=== PATIENT | male | born 1950 | race Caucasian/White ===

== ENCOUNTER 2017-05-08 16:17 | Emergency (ER) | payer MEDICARE ==
[2016-04-16 15:53] VITALS: Ht 177.8 cm; Wt 95.3 kg
[~2017-05-08] VITALS: Ht 177.8 cm; Wt 95.3 kg
--- NOTE | 2017-05-08 16:20 | ER Report ---
History and Physical Time Seen By MD: 16:20 HPI/ROS CHIEF COMPLAINT: r flank pain HISTORY OF PRESENT ILLNESS: Pt started a few days ago with r flank pain that radiates to rlq. Pain stasrted a few days ago, comes and goes. Pt states he is urinating more but in small amounts. No change in bm. no fevers. pt c/o of constant nausea. Went to pcp and had cbc and cmp and was then sent to the emergency department for further testing. PT denies cough, or uri symptoms. Pt states he is not leaving here today unless we know what is wrong with him "i will [facility] hospital if you discharge me and I dont feel better" REVIEW OF SYSTEMS: Constitutional: No fever, no chills. Eyes: No discharge. ENT: No sore throat. Cardiovascular: No chest pain, no palpitations. Respiratory: No cough, no shortness of breath. Gastrointestinal: + abdominal pain, no vomiting. Genitourinary: No hematuria. Musculoskeletal: + back pain. Skin: No rashes. Neurological: No headache. Allergies: Coded Allergies: acetaminophen (Verified Allergy, Unknown, 04/14/16) oxycodone HCl (Verified Allergy, Unknown, 04/14/16) Home Meds Reported Medications Carvedilol (CARVEDILOL) 12.5 Mg Tablet, 25 MG PO BID, #20 TAB 12/21/14 Sertraline Hcl (ZOLOFT) 100 Mg Tablet, 1 TAB PO HS TAKE ONE TABLET BY MOUTH EVERY DAY 05/17/13 Levothyroxine Sodium (LEVOTHYROXINE SODIUM) 75 Mcg Tablet, 75 MCG PO QDAY 05/17/13 Omeprazole (OMEPRAZOLE) 20 Mg Tablet.dr, 20 MG PO QDAY TAKE ONE TABLET BY MOUTH ONCE A DAY 05/17/13 Quetiapine Fumarate (Seroquel Xr) 150 Mg Tab.sr.24h, 150 MG PO QHS, #30 1 Refill 05/07/12 Trazodone Hcl (Desyrel) 100 Mg Tablet, 100 MG PO QHS, #30 1 Refill 05/07/12 Discontinued Reported Medications Losartan/Hydrochlorothiazide (LOSARTAN-HCTZ 100-25 MG TAB) 1 Each Tablet, 1 EACH PO QDAY 12/21/14 Simvastatin (SIMVASTATIN) 20 Mg Tablet, 20 MG PO HS, TAB 2/11/14 Discontinued Scripts Cephalexin 500 Mg Tab (KEFLEX 500 MG TAB) 500 Mg Tablet, 500 MG PO TID, #21 TAB Prov:MARY ANN PALACIO V DO 12/14/16 Ondansetron (ZOFRAN ODT) 4 Mg Tab.rapdis, 4 MG PO Q4-6H Y for NAUSEA/VOMITING, # 15 TAB.RASHI Prov:MARY ANN PALACIO V DO 12/14/16 Hydrocodone Bit/Acetaminophen (HYDROCODON-ACETAMINOPHEN 5-325) 1 Each Tablet, 1 EACH PO Q4-6H Y for PAIN, #15 TAB Prov:MARY ANN PALACIO V DO 12/14/16 Pantoprazole Sodium (PANTOPRAZOLE SODIUM) 40 Mg Tablet.dr, 40 MG PO QDAY, #30 TAB 3 Refills Prov:BLESSING BRUNNER MD 04/16/16 Past Medical/Surgical History Pmhx: kidney stones, htn,hyperlipid, divertic Pshx: neg abd surgeries Reviewed Nurses Notes: Yes Old Medical Records Reviewed: Yes Hx Smoking: No Hx Substance Use Disorder: No Hx Alcohol Use: No Constitutional Vital Sign - Last 24 Hours 05/08/17 05/08/17 05/08/17 05/08/17 16:32 16:33 16:36 16:47 Temp 99.4 Pulse ??? 93 93 Resp 16 6 B/P (MAP) 186/119 (141) 186/119 Pulse Ox 94 89 O2 Delivery Room Air 05/08/17 05/08/17 05/08/17 05/08/17 17:00 17:02 17:17 17:30 Pulse 89 ??? Resp 12 B/P (MAP) 116/92 (100) 179/113 (135) Pulse Ox 94 05/08/17 05/08/17 05/08/17 05/08/17 17:32 17:47 18:00 18:02 Pulse 93 91 91 Resp 18 16 17 B/P (MAP) 170/100 (123) Pulse Ox 95 93 96 Physical Exam General Appearance: The patient is alert, has no immediate need for airway protection and no signs of toxicity. Eyes: Pupils equal and round no pallor or injection, EOMI ENT: no pharyngeal erythema or exudates, Mucous membranes are moist Respiratory: There are no retractions, lungs are clear to auscultation. Cardiovascular: Regular rate and rhythm. pulses are equal and symmetrical Gastrointestinal: Abdomen is soft with mild tenderness rlq, no masses, bowel sounds normal, no guarding, no rigidity or rebound; + R cva tenderness Neurological: Cranial nerves II-XII grossly intact, no sensory or motor loss Skin: Warm and dry, no rashes. Musculoskeletal: Neck is supple non tender, no vertebral tenderness Extremities are nontender, non swollen and have full range of motion. DIFFERENTIAL DIAGNOSIS: After history and physical exam differential diagnosis was considered for kidney stone, uti, pyelo, divertic Medical Decision Making Data Points Laboratory Hematology Test 05/08/17 16:40 Urine Color Yellow Urine Clarity Clear Urine pH 5.0 pH (4.8-9.5) Urine Specific [place] 1.026 Urine Protein 30 mg/dL (NEGATIVE) Urine Glucose (UA) Negative mg/dL (NEGATIVE) Urine Ketones Negative mg/dL (NEGATIVE) Urine Blood Negative (NEGATIVE) Urine Nitrite Negative (NEGATIVE) Urine Bilirubin Negative (NEGATIVE) Urine Urobilinogen Negative mg/dL (0.2-1.9) Urine Leukocyte Esterase Negative (NEGATIVE) Urine RBC 5 /HPF (0-2/HPF) Urine WBC 1 /HPF (0-5/HPF) Urine Squamous Epithelial Cells None /LPF (</=FEW) Urine Bacteria Negative /HPF (NONE-FEW) Urine Mucus None /HPF (NONE-FEW) Chemistry Test 05/08/17 16:40 Urine Color Yellow Urine Clarity Clear Urine pH 5.0 pH (4.8-9.5) Urine Specific [place] 1.026 Urine Protein 30 mg/dL (NEGATIVE) Urine Glucose (UA) Negative mg/dL (NEGATIVE) Urine Ketones Negative mg/dL (NEGATIVE) Urine Blood Negative (NEGATIVE) Urine Nitrite Negative (NEGATIVE) Urine Bilirubin Negative (NEGATIVE) Urine Urobilinogen Negative mg/dL (0.2-1.9) Urine Leukocyte Esterase Negative (NEGATIVE) Urine RBC 5 /HPF (0-2/HPF) Urine WBC 1 /HPF (0-5/HPF) Urine Squamous Epithelial Cells None /LPF (</=FEW) Urine Bacteria Negative /HPF (NONE-FEW) Urine Mucus None /HPF (NONE-FEW) Urinalysis Test 05/08/17 16:40 Urine Color Yellow Urine Clarity Clear Urine pH 5.0 pH (4.8-9.5) Urine Specific [place] 1.026 Urine Protein 30 mg/dL (NEGATIVE) Urine Glucose (UA) Negative mg/dL (NEGATIVE) Urine Ketones Negative mg/dL (NEGATIVE) Urine Blood Negative (NEGATIVE) Urine Nitrite Negative (NEGATIVE) Urine Bilirubin Negative (NEGATIVE) Urine Urobilinogen Negative mg/dL (0.2-1.9) Urine Leukocyte Esterase Negative (NEGATIVE) Urine RBC 5 /HPF (0-2/HPF) Urine WBC 1 /HPF (0-5/HPF) Urine Squamous Epithelial Cells None /LPF (</=FEW) Urine Bacteria Negative /HPF (NONE-FEW) Urine Mucus None /HPF (NONE-FEW) EKG/Imaging Imaging + stone ED Course/Re-evaluation ED Course [facility] cbc: wbc 14.7 hb/hct 16.4/49.1 plt 254 CMP: na: 142, K 3.9, CO2 28, Cl 103, Glu 112, Ca 10, Bun 16 Cre 1.8, alk phos 71, alt 24, ast 27, tbili 0.8, alb 4.5, tp 7.3 05/08/2017 5:48:[address] scan and I suspect his pain is due to a tiny distal ureter stone. Awaiting the official reading. 05/08/2017 6:28:13 pm 2mm stone. will d/c to follow up with . Pts bp is elevate but is suspect that is partially pain related. Pt drove to ed so unable to treat. will d/c with vicodin to take at home. Will need bp rechecked once stone passed. Decision to Disposition Date: May 08, 2017 Decision to Disposition Time: 18:28 Depart Departure Latest Vital Signs Vital Signs Date Time Temp Pulse Resp B/P (MAP) Pulse Ox O2 Delivery O2 Flow Rate FiO2 05/08/17 18:02 91 17 96 05/08/17 18:00 170/100 (123) 05/08/17 16:36 99.4 Room Air Impression: Primary Impression: Kidney stone on right side Condition: Improved Disposition: HOME OR SELF-CARE Referrals: ABBY HULL MD (PCP) LILIANA CAROLINA MD 2 Days New Scripts Ondansetron (ZOFRAN ODT) 4 Mg Tab.rapdis 4 MG PO Q6-8H Y for NAUSEA, #10 TAB.RASHI Prov: MARY ANN PALACIO V DO 05/08/17 Hydrocodone Bit/Acetaminophen (HYDROCODON-ACETAMINOPHEN 5-325) 1 Each Tablet 1 EACH PO Q4-6H Y for PAIN, #20 TAB Prov: MARY ANN PALACIO DO 05/08/17 Patient Instructions: Kidney Stones (ED) Additional Instructions: You have a 2mm kidney stone in your distal ureter which is causing you pain and nausea. You should be able to pass the stone. Strain your urine for stone. Follow up with Dr. Carolina. Vicodin one every 6 hours as needed for pain. Zofran one every 6 hours as needed for nausea. If symptoms worsen prior to seeing you urologist then please return. MARY ANN PALACIO DO May 08, 2017 16:20
[2017-05-08] MEDS ORDERED: ONDANSETRON 4 MG/2 ML VIAL IVP ONE (16:40)
[2017-05-08] MEDS ORDERED: NS(*) 0.9% 1000 ML BAG 1,000 ML IV ONE (16:40)
--- NOTE | 2017-05-08 18:05 | RADIOLOGY IMAGING REPORT ---
FACILITY: [facility] [place] PATIENT NAME: Anatoly Alexander : 1950 MR: [id number] V: [id number] EXAM DATE: ORDERING PHYSICIAN: MARY ANN PALACIO TECHNOLOGIST: [place] [facility] [place] Anatoly [place] : 1950 Visit/Account:[id number] Date of Sevice: 05/08/2017 ABDOMEN/PELVIS W/O CONTRAST HISTORY: flank pain TECHNIQUE: Axial images acquired through the abdomen/pelvis. Coronal and sagittal reformatting also performed. No IV contrast administered. One of the following dose optimization techniques was utili zed in the performance of this exam: Automated exposure control; adjustment of the mA and/or kV accor ding to the patient's size; or use of an iterative reconstruction technique. Specific details can b e referenced in the facility's radiology CT exam operational policy. COMPARISON: 12/14/2016 CT FINDINGS: Visualized lung bases: Negative. Hepatobiliary: Negative. Spleen: Negative. Adrenals: Negative. Pancreas: Negative. Kidneys ureters and bladder: There is interval development of mild right-sided hydronephrosis and ure terectasis which terminates in a 2 mm stone which is lodged in the distal right ureter approximately 1 cm from the ureterovesical junction. There is associated moderate right perinephric fat stranding. There are no additional stones in either kidney. A 3 cm right renal cyst and approximately 1 cm left renal cyst are unchanged. Genitalia: Prostate mildly enlarged. GI: Negative. Vessels/spaces/nodes: Negative. Bones/soft tissues: There is disc space narrowing at every level of the thoracic lumbar spine from T 8-9 through L5-S1 with possible exception of L3-4 compatible with degenerative disc disease. There ar e no compression fractures. Additional findings: There is a small fat filled left inguinal hernia IMPRESSION: 2 mm stone lodged in the distal right ureter causing obstruction of the right renal collecting system . There are no additional stones seen in the kidneys. Small left inguinal hernia containing intraperitoneal fat. Multilevel degenerative disc disease through the spinal axis Additional benign findings per above. Report Dictated By: Raymundo Nino MD at 05/08/2017 5:51 PM Report E-Signed By: Raymundo Nino MD at 05/08/2017 6:01 PM WSN:[id number]
[2017-05-08 18:30] VITALS: BP 157/92
[2017-05-08] MEDS ORDERED: LOR5/325 PO (18:31)
[2017-05-08] MEDS ORDERED: ONDA4TAB PO (18:34)
[2017-05-08] MEDS ORDERED: ACET/HYDROC 5/325MG TH ER ONLY 2 TAB/BOTTLE PO ONE (18:35)
== END 2017-05-08 18:55 | disposition home or self-care (01) ==
LOC: ER 16:37
DX: N20.0 Calculus of kidney (principal)
CPT/HCPCS: 74176; 81001; 96361; 96374; 99284; J2405; J7030

== ENCOUNTER → 2017-05-08 | Outpatient (REF) | payer MEDICARE ==
[2016-04-16 15:53] VITALS: BMI 28.7
[~2017-05-08] MED LIST: CARV12.578 PO; CEPH500T7 PO; DICL-195 PO; DOC100 PO; FLUO40CA70 PO; HYDR12.561 PO; LEVO75TA73 PO; LIO5 PO; LISI-347 PO; LISI20TA29 PO; LOR5/325 PO; LOSA-54 PO; MEGE40TA19 PO; MULT1TAB54 PO; OMEP-137 PO; ONDA4TAB PO; PANT40TA13 PO; PANT40TA65 PO; PRAV40TA77 PO; QUET150T3 PO; SERT20OR6 PO; SIMV-49 PO; TRAZ-133 PO
== END ==
LOC: ZZSENDIN 16:30
PROVIDERS: ATTEND Physician Assistant
DX: M54.5 Low back pain (principal)
CPT/HCPCS: 81001

== ENCOUNTER → 2017-06-30 | Outpatient (CLI) | payer MEDICARE ==
[2016-04-16 15:53] VITALS: BMI 28.7
[~2017-06-30] MED LIST changes: +SERT-173 PO; -SERT20OR6 PO
--- NOTE | 2017-06-30 10:33 | RADIOLOGY IMAGING REPORT ---
FACILITY: [facility] [place] PATIENT NAME: Anatoly Alexander : 1950 MR: [id number] V: [id number] EXAM DATE: ORDERING PHYSICIAN: LILIANA TABARES TECHNOLOGIST: Location: [facility] Patient: Anatoly Alexander : 1950 Visit/Account:[id number] Date of Sevice: 06/30/2017 Technique: KIDNEYS HISTORY: Incomplete bladder emptying Procedure: There has been satisfactory grayscale, color and Doppler ultrasonic evaluation of the kidn eys and bladder. Comparison: CT abdomen pelvis May 08, 2017 Findings: The right kidney is normal in size, contour and echogenicity; it measures 10.2 cm x 5.2 cm x 4.9 cm in its sagittal, transverse and AP dimensions. No evidence of hydronephrosis. Incidentally noted is a simple appearing cyst within the right kidney measuring 2.7 x 2.9 x 2.8 cm The left kidney is normal in size, contour and echogenicity; it measures 10.2 cm x 5.3 cm x 4.6 cm i n its sagittal, transverse and AP dimensions. Bladder: Distended. Prevoid volume 51 mL and post void volume 8 mL Flow is identified in the aorta and IVC so far as visualized. IMPRESSION: 1. Unremarkable renal ultrasound. Report Dictated By: Nirmal Pantoja DO at 06/30/2017 10:13 AM Report E-Signed By: Nirmal Pantoja DO at 06/30/2017 10:30 AM WSN:[id number]
== END ==
LOC: US 02:18
PROVIDERS: ATTEND Urology
DX: R33.8 Other retention of urine (principal); N20.1 Calculus of ureter; Z87.448 Personal history of other diseases of urinary system
CPT/HCPCS: 76705

== ENCOUNTER → 2017-08-24 | Outpatient (CLI) | payer MEDICARE ==
[2016-04-16 15:53] VITALS: BMI 28.7
== END ==
LOC: LAB 18:03
PROVIDERS: ATTEND Urology
DX: R97.20 Elevated prostate specific antigen [PSA] (principal)
CPT/HCPCS: 36415; 84153

== ENCOUNTER → 2018-05-10 | Outpatient (CLI) | payer MEDICARE ==
[2016-04-16 15:53] VITALS: BMI 28.7
--- NOTE | 2018-05-10 11:59 | RADIOLOGY IMAGING REPORT ---
FACILITY: [facility] [place] PATIENT NAME: Anatoly Alexander : 1950 MR: [id number] V: [id number] EXAM DATE: ORDERING PHYSICIAN: ABBY HULL TECHNOLOGIST: Location: [facility] - [place], [place] Patient: Anatoly Alexander : 1950 Visit/Account:[id number] Date of Sevice: 05/10/2018 Technique: L-SPINE 2 OR 3 VIEW HISTORY: Chronic lower back pain Comparison studies: None FINDINGS: There is no acute fracture. 5 nonrib-bearing lumbar type vertebral bodies are present. Mu ltilevel degenerative changes are noted including intervertebral disc space narrowing, sclerosis and endplate osteophytosis. There is 3 mm retrolisthesis of L2 on L3, 2 mm retrolisthesis of L3 on L4 an d 2 mm anterolisthesis of L4 on L5. The vertebral body heights are maintained. IMPRESSION: 1. Degenerative changes as characterized above. Report Dictated By: Nirmal Pantoja DO at 05/10/2018 11:47 AM Report E-Signed By: Nirmal Pantoja DO at 05/10/2018 11:49 AM WSN:[id number]
== END ==
LOC: RAD 09:30
PROVIDERS: ATTEND Family Medicine
DX: M47.896 Other spondylosis, lumbar region (principal)
CPT/HCPCS: 72100

== ENCOUNTER → 2018-06-03 | Outpatient (REF) | payer MEDICARE ==
[2016-04-16 15:53] VITALS: BMI 28.7
== END ==
LOC: ZZSENDIN 11:57
PROVIDERS: ATTEND Family Medicine
DX: E87.6 Hypokalemia (principal)
CPT/HCPCS: 82310; 82374; 82435; 82565; 82947; 84132; 84295; 84520

== ENCOUNTER → 2018-07-15 | Outpatient (REF) | payer MEDICARE ==
[2016-04-16 15:53] VITALS: BMI 28.7
[2018-07-15 17:19] LABS: PLATELET COUNT, AUTOMATED 299 K/uL (150-450)
== END ==
PROVIDERS: ATTEND Nurse Practitioner Family
DX: R19.7 Diarrhea, unspecified (principal); R07.9 Chest pain, unspecified
CPT/HCPCS: 82040; 82247; 82310; 82374; 82435; 82565; 82947; 84075; 84132; 84155; 84295; 84450; 84460; 84484; 84520; 85025

== ENCOUNTER 2018-11-21 19:57 | Emergency (ER) | payer MEDICARE ==
[2016-04-16 15:53] VITALS: Wt 95.3 kg
[2018-11-21] MEDS ORDERED: NS(*) 0.9% 1000 ML BAG 1,000 ML IV ONE (20:02)
--- NOTE | 2018-11-21 20:02 | ER Report ---
History and Physical Time Seen By MD: 19:55 HPI/ROS CHIEF COMPLAINT: Altered mental status HISTORY OF PRESENT ILLNESS: 68-year-old male brought in by EMS after he was pulled over by police for driving very slowly 8 miles an hour, also driving e rratically. Patient seems very foggy and slow to answer. EMS did the stroke scale and did not have any significant findings. Patient feels febrile and touch. Patient is alert and oriented 3. He is very slow to answer and process questions. He seems easily distracted. Patient is supposed to be on Seroquel at bedtime. Patient denies substance abuse or alcohol. REVIEW OF SYSTEMS: Respiratory: No cough, no dyspnea. Cardiovascular: No chest pain, no palpitations. Gastrointestinal: No vomiting, no abdominal pain. Musculoskeletal: No back pain. Allergies: Coded Allergies: acetaminophen (Verified Allergy, Unknown, 04/14/16) oxycodone HCl (Verified Allergy, Unknown, 04/14/16) Home Meds Active Scripts Ondansetron (ZOFRAN ODT) 4 Mg Tab.rapdis, 4 MG PO Q6-8H PRN for NAUSEA, #10 TAB.RASHI Prov:MARY ANN PALACIO V DO 05/08/17 Hydrocodone Bit/Acetaminophen (HYDROCODON-ACETAMINOPHEN 5-325) 1 Each Tablet, 1 EACH PO Q4-6H PRN for PAIN, #20 TAB Prov:MARY ANN PALACIO V DO 05/08/17 Reported Medications Carvedilol (CARVEDILOL) 12.5 Mg Tablet, 25 MG PO BID, #20 TAB 12/21/14 Sertraline Hcl (ZOLOFT) 100 Mg Tablet, 1 TAB PO HS TAKE ONE TABLET BY MOUTH EVERY DAY 05/17/13 Levothyroxine Sodium (LEVOTHYROXINE SODIUM) 75 Mcg Tablet, 75 MCG PO QDAY 05/17/13 Omeprazole (OMEPRAZOLE) 20 Mg Tablet.dr, 20 MG PO QDAY TAKE ONE TABLET BY MOUTH ONCE A DAY 05/17/13 Quetiapine Fumarate (Seroquel Xr) 150 Mg Tab.sr.24h, 150 MG PO QHS, #30 1 Refill 05/07/12 Trazodone Hcl (Desyrel) 100 Mg Tablet, 100 MG PO QHS, #30 1 Refill 05/07/12 Past Medical/Surgical History Pmhx: kidney stones, htn,hyperlipid, divertic, hypothyroidism, GERD Pshx: neg abd surgeries Reviewed Nurses Notes: Yes Old Medical Records Reviewed: Yes Hx Smoking: No Hx Substance Use Disorder: No Hx Alcohol Use: No Constitutional Vital Sign - Last 24 Hours 11/21/18 11/21/18 11/21/18 11/21/18 19:57 20:03 20:12 20:30 Temp 99.5 Pulse 81 76 Resp 20 26 B/P (MAP) 139/89 (106) 139/89 120/78 (92) Pulse Ox 88 93 O2 Delivery Room Air 11/21/18 11/21/18 11/21/18 11/21/18 20:42 21:12 21:17 21:30 Pulse 68 69 Resp 15 19 B/P (MAP) 132/82 (99) 155/120 (132) Pulse Ox 92 95 11/21/18 11/21/18 11/21/18 11/21/18 21:35 21:47 21:50 22:00 Pulse 70 65 B/P (MAP) 136/86 (103) Pulse Ox 90 95 O2 Flow Rate 2.0 11/21/18 22:05 Pulse 66 Pulse Ox 95 Physical Exam General Appearance: The patient is alert, has no immediate need for airway protection and no signs of toxicity. Vital signs stable, low-grade fever 99 5 Eyes: Pupils equal and round no pallor or injection. PERRLA, EOMI ENT, Mouth: Mucous membranes are moist. Respiratory: There are no retractions, lungs are clear to auscultation. Cardiovascular: Regular rate and rhythm., No murmur Gastrointestinal: Abdomen is soft and non tender, no masses, bowel sounds normal. Neurological: Alert and oriented 3 but very slow processing his thoughts and answers., Motor 5/5 all groups, sensory intact to light touch 4, cerebellum grossly intact Skin: Warm and dry, no rashes. Musculoskeletal: Neck is supple non tender. Extremities are nontender, nonswollen and have full range of motion. DIFFERENTIAL DIAGNOSIS: After history and physical exam differential diagnosis was considered for altered mental status including but not limited to hypoglycemia, infectious process, electrolyte abnormality, head injury and intoxicants. Medical Decision Making Data Points Result Diagram: 11/21/18194611/21/181946 Laboratory Hematology Test 11/21/18 19:47 White Blood Count 9.7 k/uL (4.5-11.0) Red Blood Count 5.26 M/uL (4.00-5.60) Hemoglobin 14.4 g/dL (14.0-18.0) Hematocrit 41.1 % (42.0-52.0) L Mean Corpuscular Volume 78.2 fL (80.0-96.0) L Mean Corpuscular Hemoglobin 27.4 pg (26.0-33.0) Mean Corpuscular Hemoglobin Concent 35.0 g/dL (32.0-36.0) Red Cell Distribution Width 15.0 % (11.5-14.5) H Platelet Count 290 K/uL (150-450) Mean Platelet Volume 6.8 fL (7.2-11.1) L Neutrophils (%) (Auto) 74.1 % (39.4-72.5) H Lymphocytes (%) (Auto) 17.7 % (17.6-49.6) Monocytes (%) (Auto) 5.6 % (4.1-12.4) Eosinophils (%) (Auto) 2.0 % (0.4-6.7) Basophils (%) (Auto) 0.6 % (0.3-1.4) Nucleated RBC Relative Count (auto) 0.1 /100WBC Neutrophils # (Auto) 7.2 K/uL (2.0-7.4) Lymphocytes # (Auto) 1.7 K/uL (1.3-3.6) Monocytes # (Auto) 0.5 K/uL (0.3-1.0) Eosinophils # (Auto) 0.2 K/uL (0.0-0.5) Basophils # (Auto) 0.1 K/uL (0.0-0.1) Nucleated RBC Absolute Count (auto) 0.01 K/uL Chemistry Test 11/21/18 19:47 Sodium Level 138 mmol/L (137-145) Potassium Level 2.9 mmol/L (3.5-5.0) Chloride Level 101 mmol/L (98-107) Carbon Dioxide Level 25 mmol/L (22-30) Blood Urea Nitrogen 15 mg/dl (9-21) Creatinine 1.00 mg/dl (0.66-1.25) Glomerular Filtration Rate Calc > 60.0 Random Glucose 122 mg/dl (75-110) Lactate 1.3 mmol/L (0.7-2.1) Calcium Level 9.2 mg/dl (8.4-10.2) Total Bilirubin 0.7 mg/dl (0.2-1.3) Aspartate Amino Transf (AST/SGOT) 17 U/L (0-35) Alanine Aminotransferase (ALT/SGPT) 19 U/L (0-56) Alkaline Phosphatase 94 U/L (0-126) Ammonia < 9 UMOL/L (9-33) Troponin I < 0.012 ng/ml Total Protein 6.1 g/dl (6.3-8.2) Albumin 3.5 g/dl (3.5-5.0) Thyroid Stimulating Hormone (TSH) 6.77 uIU/ml (0.46-4.68) Toxicology Test 11/21/18 19:47 11/21/18 21:30 Serum Alcohol < 10 mg/dl Urine Opiates Screen Negative Urine Barbiturates Screen Negative Ur Tricyclic Antidepressants Screen Negative Urine Phencyclidine Screen Negative Urine Amphetamines Screen Positive Urine Benzodiazepines Screen Negative Urine Cocaine Screen Negative Urine Cannabinoids Screen Negative Urinalysis Test 11/21/18 21:30 Urine Color Yellow Urine Clarity Clear Urine pH 5.0 pH (4.8-9.5) Urine Specific [place] 1.024 Urine Protein Negative mg/dL (NEGATIVE) Urine Glucose (UA) Negative mg/dL (NEGATIVE) Urine Ketones Trace mg/dL (NEGATIVE) Urine Blood Negative (NEGATIVE) Urine Nitrite Negative (NEGATIVE) Urine Bilirubin Negative (NEGATIVE) Urine Urobilinogen Negative mg/dL (0.2-1.9) Urine Leukocyte Esterase Negative (NEGATIVE) Urine RBC <1 /HPF (0-2/HPF) Urine WBC 2 /HPF (0-5/HPF) Urine Squamous Epithelial Cells Few /LPF (</=FEW) Urine Transitional Epithelial Cells Few /LPF (NONE-FEW) Urine Bacteria Negative /HPF (NONE-FEW) Urine Mucus Few /HPF (NONE-FEW) Microbiology Microbiology Date/Time Source Procedure Growth Status 11/21/18 20:20 Blood Peripheral Draw Blood Culture - Preliminary NO GROWTH AFTER 1 DAY, REINCUBATED Resulted 11/21/18 20:14 Blood Peripheral Draw Blood Culture - Preliminary NO GROWTH AFTER 1 DAY, REINCUBATED Resulted EKG/Imaging EKG Interpretation 12 lead EK Rhythm: normal sinus rhythm [place]: normal QRS: normal ST segments: Nonspecific ST and T-wave flattening throughout all leads, on comparison to previous EKG dated Imaging X-ray: Single view portable chest x-ray was obtained. I viewed the images myself on the PACS system. My interpretation of the images is: No infiltrate, no effusion, atelectasis at the right base, comparison to previous chest x-ray 12/21/14. There is atelectasis in its unchanged in the right base. There is a shadow in the left base that is likely chest wall flap, not likely change from previous chest x-ray. The radiologist interpretation had no clinically significant variation from this interpretation. Results: CT scan of the head without contrast was obtained. The results of the study are no acute findings. The study was read by the radiologist. I viewed the images myself on the PACS system. ED Course/Re-evaluation Clinical Indication for ER IV: Hydration, IV Access ED Course Patient was admitted to an examination room. H&P was done. The differential diagnoses was considered. Patient with altered mental status. He seems very slow in his mentation and answering questions. He is alert and oriented 3. He has movement of extremities 4. A diagnostic evaluation was undertaken. Laboratory studies show a low potassium of 2.9. Patient was given potassium 60 mg once by mouth to take orally. His head CT was unremarkable. His other diagnostic studies are unremarkable. His tox screen returns positive, fern phentermine's. She scott across reactivity of another non-abuse, substance. Patient takes Seroquel 159 g extended release at bedtime. I'm wondering if he took extra doses without realizing it. Patient is stable and has no acute findings. His mentation is foggy. I'm unclear what his baseline is. Patient ambulate with a walker or cane at home. His son is here and would like to take him home. The patient would like to go home. I advised follow-up with primary care early this next week. Decision to Disposition Date: Nov 21, 2018 Decision to Disposition Time: 22:12 Critical Care Time I spent a total of 60 minutes of critical care time in obtaining history, performing a physical exam, bedside monitoring of interventions, collecting and interpreting tests and discussion with consultants but not including time spent performing procedures. Depart Departure Latest Vital Signs Vital Signs Date Time Temp Pulse Resp B/P (MAP) Pulse Ox O2 Delivery O2 Flow Rate FiO2 11/21/18 22:05 66 95 11/21/18 22:00 136/86 (103) 11/21/18 21:47 2.0 11/21/18 21:12 19 11/21/18 20:03 99.5 Room Air Impression: Primary Impression: Altered mental status, unspecified Additional Impressions: Hypokalemia Fever Condition: Improved Disposition: HOME OR SELF-CARE Referrals: ABBY HULL MD (PCP) Patient Instructions: Altered Mental Status (ED) Additional Instructions: Follow-up with Dr. Lundy this next week Problem Qualifiers Primary Impression: Altered mental status, unspecified Altered mental status type: disorientation Qualified Codes: R41.0 - Disorientation, unspecified Additional Impressions: Fever Fever type: unspecified Qualified Codes: R50.9 - Fever, unspecified KAMALJIT ALONSO DO Nov 21, 2018 20:02
[2018-11-21 20:18] LABS: PLATELET COUNT, AUTOMATED 290 K/uL (150-450)
--- NOTE | 2018-11-21 20:22 | EKG ---
FACILITY: [facility] PATIENT NAME: NICKI BURNETT : [id number] MR: [id number] V: [id number] EXAM DATE: ORDERING PHYSICIAN: KAMALJIT ALONSO TECHNOLOGIST: AISLINN Test Reason : CP Blood Pressure : / mmHG Vent. Rate : 075 BPM Atrial Rate : 075 BPM P-R Int : 170 ms QRS Dur : 084 ms QT Int : 396 ms P-R-T Axes : 027 011 019 degrees QTc Int : 442 ms Sinus rhythm Possible left atrial enlargement ST depression and T wave flattening in leads II, AVF, V3-6 concerning for ischemia Abnormal ECG Confirmed by KERRI ELVI ([id number]) on 11/21/2018 9:10:53 PM Referred By: Confirmed By:KERRI LEVI
--- NOTE | 2018-11-21 21:32 | RADIOLOGY IMAGING REPORT ---
FACILITY: [facility] [place] PATIENT NAME: Anatoly Alexander : 1950 MR: [id number] V: [id number] EXAM DATE: ORDERING PHYSICIAN: KAMALJIT ALONSO TECHNOLOGIST: Location: [facility] Patient: Anatoly Alexander : 1950 Visit/Account:[id number] Date of Sevice: 11/21/2018 CHEST SINGLE AP Indication: Altered mental status.. Comparison: 12/21/2014. Findings: Cardiomediastinal silhouette and pulmonary vessels within normal limits. There is no focal infiltrate or lobar consolidation. No pneumothorax or pleural effusion. Mild scarring is seen in the right lower lobe. No discrete nodule. Upper abdomen is unremarkable. The re is again eventration right hemidiaphragm. No acute bony abnormality. IMPRESSION: 1. No acute cardiopulmonary process. Report Dictated By: Abdelrahman Lund at 11/21/2018 9:21 PM Report E-Signed By: Abdelrahman Lund at 11/21/2018 9:24 PM WSN:[id number]
--- NOTE | 2018-11-21 21:41 | RADIOLOGY IMAGING REPORT ---
FACILITY: PATIENT NAME: Anatoly Alexander : 1950 MR: [id number] V: [id number] EXAM DATE: [id number] ORDERING PHYSICIAN: KAMALJIT ALONSO TECHNOLOGIST: Location: Patient: Anatoly Alexander : 1950 Visit/Account:[id number] Date of Sevice: 11/21/2018 CT Head without contrast Indication: Altered mental status. Comparison: 05/07/2012. Technique: Axial CT images were obtained through the brain from the skull base to the vertex without administration of IV contrast. Reformatted coronal and sagittal images were also obtained. One of the following dose optimization techniques was utilized in the performance of this exam: autom ated exposure control; adjustment of the mA and/or kV according to the patient's size; or use of an i terative reconstruction technique. Specific details can be referenced in the facility's radiology CT exam operational policy. Findings: No evidence of mass, mass effect, or midline shift. No acute intracranial hemorrhage or acute territorial infarction. No extra-axial fluid collection or hydrocephalus. Age-related cerebral atrophy. Periventricular white matter ischemic changes consistent small vessel disease. Bony structures show no fractures or lesions. The visualized paranasal sinuses and mastoid air cells are clear. IMPRESSION: 1. Continued senescent changes without acute abnormality. Report Dictated By: Abdelrahman Lund at 11/21/2018 9:27 PM Report E-Signed By: Abdelrahman Lund at 11/21/2018 9:33 PM WSN:[id number]
[2018-11-21 22:00] VITALS: BP 136/86
[2018-11-21] MEDS ORDERED: POTASSIUM CHL 20 MEQ TABCR PO ONE (22:15)
== END 2018-11-21 22:29 | disposition home or self-care (01) ==
LOC: ER 20:09
DX: R41.82 Altered mental status, unspecified (principal); E87.6 Hypokalemia; R50.9 Fever, unspecified
CPT/HCPCS: 70450; 71045; 80305; 81001; 82140; 82375; 82803; 83605; 84443; 84484; 85025; 87040; 93005; 96360; 99284; A9270; G0480; J7030; 80320; 82040; 82247; 82310; 82374; 82435; 82565; 82947; 84075; 84132; 84155; 84295; 84450; 84460; 84520

== ENCOUNTER → 2018-11-21 | Outpatient (CLI) | payer MEDICARE ==
[2016-04-16 15:53] VITALS: BMI 28.7
== END ==
LOC: AMB 19:17
PROVIDERS: ATTEND Nurse Practitioner
DX: R40.4 Transient alteration of awareness (principal); R41.0 Disorientation, unspecified
CPT/HCPCS: A0425; A0427